=== PATIENT | female | born 1945 | race Caucasian/White ===

== ENCOUNTER → 2016-05-02 | Outpatient (CLI) | payer MEDICARE, BC ==
[2015-07-08 11:00] VITALS: BP 141/54
[~2016-05-02] MED LIST: ALPR0.5T PO; ASPI-482 PO; ATEN50TA PO; BUPR150T6 PO; CALC600T4 PO; CALC667C6 PO; CITA40TA5 PO; CRESTOR20 MG PO; DENO120V SQ; DRON400T PO; FOLI1TAB6 PO; FULV250D IM; GLIM4TAB2 PO; INSU100I13 SQ; SITA100T PO; TRAM50TA PO; TURM500C7 PO
== END | disposition home or self-care (01) ==
LOC: PCVCIMAG 10:03
PROVIDERS: ATTEND Internal Medicine Cardiovascular Disease
DX: I48.91 Unspecified atrial fibrillation (principal); E78.5 Hyperlipidemia, unspecified; I25.10 Atherosclerotic heart disease of native coronary artery without angina pectoris; I49.5 Sick sinus syndrome; I77.9 Disorder of arteries and arterioles, unspecified; E11.9 Type 2 diabetes mellitus without complications; R06.00 Dyspnea, unspecified; Z95.0 Presence of cardiac pacemaker
CPT/HCPCS: 80061; 93005; 93306; G0463